=== PATIENT | male | born 1985 | race Asian ===

== ENCOUNTER → 2024-10-07 | Day surgery (SDC) | payer MEDICAID ==
[~2024-10-07] VITALS: Ht 167.6 cm; Wt 83.0 kg
[~2024-10-07] MED LIST: ACETAMINOPHEN 1,000MG/100ML PREMIX IV PRN; BUPIVACAINE HCL/PF 0.5% (5MG/ML) 10ML ONE; CEFAZOLIN SODIUM 1000MG/VIAL ONE; FAMOTIDINE 20MG/2ML VIAL IV ONE; FAMOTIDINE 20MG/2ML VIAL IV PRN; FENTANYL CITRATE/PF 50MCG/ML 2ML VIAL ONE; HYDRALAZINE 20MG/ML VIAL IV PRN; HYDROMORPHONE HCL/PF 1MG/ML INJ IV PRN; LABETALOL 5MG/ML 4ML INJ IV PRN; LACTATED RINGERS 1,000 ML IV SCH; MEPERIDINE HCL/PF 25MG/ML CPJ IV PRN; MIDAZOLAM HCL 2 MG/2 ML VIAL ONE; ONDANSETRON HCL 4MG/2ML INJ IV PRN; PROPOFOL 200MG/20ML VIAL IV ONE
== END | disposition home or self-care (01) ==
LOC: OR 07:30
PROVIDERS: ATTEND Surgery
DX: D17.1 Benign lipomatous neoplasm of skin and subcutaneous tissue of trunk (principal); Z79.899 Other long term (current) drug therapy; Z98.890 Other specified postprocedural states
CPT/HCPCS: 88304; 21931; J3010; J0665; J0690; J1308; J2250; J2704; J7120; A4606

== ENCOUNTER 2024-12-08 12:53 | Emergency (ER) | payer MEDICAID ==
[~2024-12-08] VITALS: Ht 170.2 cm; Wt 80.0 kg
[2024-12-08 13:04] VITALS: O2SAT 100
[2024-12-08] MEDS ORDERED: SULF1TAB48 MT (15:55)
[2024-12-08] MEDS ORDERED: IBUP-2028 MT (15:55)
[2024-12-08] MEDS: LIDOCAINE HCL 1% 20ML VIAL INFIL ONE (16:07)
[2024-12-08] MEDS: IBUPROFEN 600MG TABLET PO ONE (16:07)
[2024-12-08 16:08] VITALS: BP 119/75; PULSE 70; RESP 16; TEMP 36.7; O2SAT 100
== END 2024-12-08 16:08 | disposition home or self-care (01) ==
LOC: ER 12:53
DX: L02.31 Cutaneous abscess of buttock (principal); Z98.890 Other specified postprocedural states
CPT/HCPCS: 10060; 99283; J2003; Z7610 ×3

== ENCOUNTER 2024-12-13 10:53 | Emergency (ER) | payer MEDICAID ==
[~2024-12-13] VITALS: Ht 172.7 cm; Wt 85.0 kg
[~2024-12-13 10:53] MED LIST changes: -ACETAMINOPHEN 1,000MG/100ML PREMIX IV PRN; -BUPIVACAINE HCL/PF 0.5% (5MG/ML) 10ML ONE; -CEFAZOLIN SODIUM 1000MG/VIAL ONE; -FAMOTIDINE 20MG/2ML VIAL IV ONE; -FAMOTIDINE 20MG/2ML VIAL IV PRN; -FENTANYL CITRATE/PF 50MCG/ML 2ML VIAL ONE; -HYDRALAZINE 20MG/ML VIAL IV PRN; -HYDROMORPHONE HCL/PF 1MG/ML INJ IV PRN; +IBUP-2028 MT; -LABETALOL 5MG/ML 4ML INJ IV PRN; -LACTATED RINGERS 1,000 ML IV SCH; -MEPERIDINE HCL/PF 25MG/ML CPJ IV PRN; -MIDAZOLAM HCL 2 MG/2 ML VIAL ONE; -ONDANSETRON HCL 4MG/2ML INJ IV PRN; -PROPOFOL 200MG/20ML VIAL IV ONE; +SULF1TAB48 MT
[2024-12-13 11:01] VITALS: O2SAT 100
[2024-12-13] MEDS ORDERED: SULF1TAB48 MT (12:46)
[2024-12-13] MEDS ORDERED: IBUP-1455 MT (12:46)
[2024-12-13 12:54] VITALS: BP 108/70; PULSE 64; RESP 18; TEMP 36.7; O2SAT 100
== END 2024-12-13 13:05 | disposition home or self-care (01) ==
LOC: ER 10:53
DX: L02.212 Cutaneous abscess of back [any part, except buttock and flank] (principal); Z98.890 Other specified postprocedural states; Z79.899 Other long term (current) drug therapy
CPT/HCPCS: 99283